=== PATIENT | female | born 2000 | race African-American/Black ===

== ENCOUNTER 2021-01-01 10:00 | Outpatient (RCR) | payer BC, MEDICAID, SELFPAY ==
--- NOTE | 2020-12-04 15:29 | PTOPEVAL ---
PHYSICAL THERAPY EVALUATION Thank you for referring Vianca Nava to [facility].? Vianca was evaluated for the dx of mid/low back pain. The patient is scheduled to be seen for therapy?2 x/week for 3 weeks. Please review, sign, date and return this plan of care RUTH. I agree with and certify that the following plan of care is medically necessary. Referring Physician Date Attending Provider: Valentine Montague CNM Referring Provider: Valentine Montague CNM *PT Outpatient Evaluation Start: 12/04/20 14:10 Freq: Status: Active Protocol: Document 12/04/20 14:10 [facility] (Rec: 12/04/20 15:03 [facility] [id number]) Assessment Status Evaluation Evaluation Information Problem Diagnosis low back pain Onset 1 year ago Additional Evaluation Detail The patient started having pain after she delivered her 1st child. The patient never had back pain prior to . 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 The patient has pain with certain sitting or laying postures. The symptoms are not affected by activities. The patient has had no diagnostic testing. Pain Assessment Timing of Pain Assessment Timing of Pain Assessment Assessment Pain Scale Pain Scale Used Numeric (1 - 10) Self Report Pain Assessment Back Reported Pain Level 0 Pain Description Soreness,Tightness Pain Frequency Acute Greatest Pain Intensity 5 Pain Score Pain Score 0: Self Report Interventions Used Interventions Used By Clinicians Education,Electrical Stimulation,Exercise,Heat Pain Relief Interventions Used By Exercise,Heat Patient Cervical and Lumbar ROM Lumbar ROM Reason Not Measured WNL/Left,WNL/Right Lumbar Comments left low back pain with sidebend and rotation Lower Extremity Range of Motion General Lower Extremity Range of Motion Reason Not Measured WNL/Left,WNL/Right Gross Lower Extremity Range of Motion ashly. hip IR 20 degrees Comments Cervical and Lumbar Muscle Testing Lumbar Strength Upper Abdominal Strength 3+Fair+ Lower Abdominal Strength 3 Fair Upper Back Extension 4 Good Lower Back Extension 3+Fair+ Lower Extremity Muscle Strength Testing General Lower Extremity Strength Reason Not Measured WFL/Left,
--- NOTE | 2020-12-07 12:37 | PCPTNOTE ---
Patient called & cancelled scheduled appointment this date due to having to work.
--- NOTE | 2020-12-21 10:39 | PCPTNOTE ---
Patient called & cancelled scheduled appointment this date. Plans to return to next scheduled appt.
--- NOTE | 2020-12-23 11:26 | PCPTNOTE ---
Patient called & cancelled scheduled appointment this date due to weather.
--- NOTE | 2021-01-01 10:56 | PTOPEVAL ---
PHYSICAL THERAPY DISCHARGE Thank you for referring Vianca Nava to [facility].? The patient has been seen 4 visits with the diagnosis of low back pain. Goals are met and the patient has no further skilled PT needs at this time. Please review, sign, date and return this discharge plan. I agree with and certify the following plan of care. Referring Physician Date Attending Provider: Valentine Montague CNM *PT Outpatient Discharge Start: 12/04/20 14:10 Freq: Status: discharge Protocol: Document 01/01/21 10:07 [facility] (Rec: 01/01/21 10:47 [facility] [id number]) Assessment Status Discharge Problem Additional Evaluation Detail Patient continues the exercises without trouble but wants more for the upper back. Patient reports being pain free at her low back and continues to work out and do her home program regularly. Pain Assessment Timing of Pain Assessment Timing of Pain Assessment Assessment Self Report Self Report Pain Level 0 Pain Score Pain Score 0: Self Report Interventions Used Interventions Used By Clinicians Education,Exercise Pain Relief Interventions Used By Exercise Patient Cervical and Lumbar ROM Lumbar ROM Reason Not Measured WNL/Left,WNL/Right Lumbar Comments no pain with trunk motions now Cervical and Lumbar Muscle Testing Lumbar Strength Upper Abdominal Strength 3+Fair+ Lower Abdominal Strength 3+Fair+ Upper Back Extension 4+ Good+ Lower Back Extension 4-Good- Lumbar Functional Strength Comments improved and pain free with exercises Lower Extremity Muscle Strength Testing General Lower Extremity Strength Reason Not Measured WNL/Left,WNL/Right Gross Lower Extremity Strength hip strength improved with endurance-no fatigue with 3 sets of 10 reps resisted exerises Palpation Assessment Palpation Palpation minimal to trace tightness at lumbar erectors General Exercise PT Clinical Summary Ms. Nava has been seen for 4 visits for low back pain and the patient has improved with all goals being met. The patient is independent and compliant with all home exercises and plans to continue on her own. The patient no longer requires
== END 2021-01-01 12:14 | disposition home or self-care (01) ==
LOC: ANHPT 10:00
PROVIDERS: Referring Provider Advanced Practice Midwife; Visit Provider Advanced Practice Midwife
DX: M54.5 Low back pain (principal)
CPT/HCPCS: 97014; 97110; 97161; G0283